=== PATIENT | female | born 1965 | race Caucasian/White ===

== ENCOUNTER 2017-12-24 07:09 | Outpatient (CLI) | payer OTHER | END 2017-12-24 07:16 | disposition home or self-care (01) | LOC: SONOGRAMA 07:09 | DX: E04.2 Nontoxic multinodular goiter (principal) ==

== ENCOUNTER 2024-11-21 07:00 | Inpatient (IN) | payer OTHER ==
[~2024-11-21] VITALS: Ht 162.6 cm; Wt 65.8 kg
[2024-11-21] MEDS ORDERED: CELEBREX50 MG (08:25)
[2024-11-21] MEDS ORDERED: FOLIC ACID1 MG PO (08:26)
[2024-11-21] MEDS ORDERED: METOTREXATE (08:32)
[2024-11-21 08:35] VITALS: BP 112/79
[2024-11-21 08:38] LABS: BASO % 0.2 % (0.1-1.2); EOS # 0.23 (0.04-0.54); EOS % 2.8 % (0.7-7.0); LYMPH # 2.48 (1.18-3.74); LYMPH % 30.5 % (19.3-53.1); MEAN PLATELET VOLUME 9.00 fl (9.4-12.4); MONO # 0.50 (0.24-0.82); MONO % 6.2 % (4.7-12.5); NEUT # 4.87 (1.56-6.13); NEUT % 60.1 % (34.0-71.1); RED CELL DISTRIBUTION WIDTH 13.3 % (11.6-14.4)
[2024-11-21 08:40] LABS: URINE APPEARANCE Cloudy; URINE BILIRRUBIN Negative (NEGATIVE); URINE BLOOD Small; URINE COLOR Yellow; URINE GLUCOSE Negative (NEGATIVE); URINE KETONE Trace (NEGATIVE); URINE LEUKOCYTE Large; URINE NITRATE Negative; URINE PROTEIN Negative (NEGATIVE); URINE UROBILINOGEN 0.2 E.U./dl
[2024-11-21 08:44] LABS: URINE BACTERIA 1815.5 uL (0.0-1933); URINE EPITHELIAL CELLS 34.1 uL (0.0-38.8); URINE RBC 91.2 uL (0.0-20.8); URINE WBC 737.6 uL (0.0-23.2)
[2024-11-21 08:55] LABS: COVID-19 AG NEGATIVE (NEGATIVE)
[2024-11-21 09:02] LABS: URINE CAST 0.14 uL (0.0-1.40)
[2024-11-21 09:06] LABS: INR 1.0
[2024-11-21 09:13] LABS: ALT/SGPT 16.0 U/L (12-78); AST/SGOT 10.0 U/L (15-37); BILIRUBIN TOTAL 0.38 mg/dL (0.3-1.2); BUN CREA RATIO 23.0 (7.0-25.0); CHOL HDL RATIO 3.0 (0-5.0); CREATININE SERUM 0.35 mg/dL (0.55-1.02); GFR 191.25; GLOBULINA 4.6 G/DL (2.4-3.5); GLUCOSE FASTING 106.0 mg/dL (65-100); HDL 56.0 mg/dl (40-60); LDL 86.0 mg/dl (0-130); OSMOLALITY SERUM 284.0 MOSM/KG (275-295); VLDL 24.0 (0-39)
[2024-11-21 10:51] LABS: RH POSITIVE
[2024-11-29] MEDS ORDERED: LIDOCAINE HCL 1%/EPINEPHRINE 20ML VIAL IJ ONE (09:30)
[2024-11-29] MEDS ORDERED: MORPHINE SULFATE 4 MG/ML CARTRIDGE IV ONE (09:30)
[2024-11-29] MEDS ORDERED: ISOPROPYL ALCOHOL 30 ML OUNCE TOP ONE (09:30)
[2024-11-29] MEDS ORDERED: BUPIVACAINE HCL 30 ML VIAL IJ ONE (09:30)
[2024-11-29] MEDS ORDERED: CEFAZOLIN SODIUM 1,000 MG VIAL IV ONE (09:30)
[2024-11-29] MEDS ORDERED: TRANEXAMIC ACID 100MG/1ML (1000MG) AMPUL IV ONE (09:30)
[2024-11-29] MEDS ORDERED: KETOROLAC TROMETHAMINE 60 MG VIAL IM ONE (09:30)
[2024-11-29] MEDS ORDERED: OxyCODONE HCL 5 MG TABLET (ROXICODONE) PO PRN (12:15)
[2024-11-29] MEDS ORDERED: SODIUM CHLORIDE 0.45 % 1,000 ML IV SCH (12:15)
[2024-11-29] MEDS ORDERED: ONDANSETRON HCL 2 MG/ML VIAL IV PRN (12:15)
[2024-11-29] MEDS ORDERED: MORPHINE SULFATE 4 MG/ML CARTRIDGE IV PRN (12:15)
[2024-11-29] MEDS ORDERED: CEFAZOLIN SODIUM 1,000 MG VIAL IV SCH (17:00)
[2024-11-29] MEDS ORDERED: GABAPENTIN 300 MG CAPSULE PO SCH (17:00)
[2024-11-29 17:11] VITALS: BP 148/88; O2SAT 96
[2024-11-29] MEDS ORDERED: ACETAMINOPHEN 500 MG GEL..CAP PO SCH (18:00)
[2024-11-29 23:00] VITALS: BP 126/76; O2SAT 100
[2024-11-30 07:22] LABS: BASO % 0.2 % (0.1-1.2); EOS # 0.03 (0.04-0.54); EOS % 0.5 % (0.7-7.0); LYMPH # 1.31 (1.18-3.74); LYMPH % 20.5 % (19.3-53.1); MEAN PLATELET VOLUME 9.70 fl (9.4-12.4); MONO # 0.43 (0.24-0.82); MONO % 6.7 % (4.7-12.5); NEUT # 4.60 (1.56-6.13); NEUT % 71.9 % (34.0-71.1); RED CELL DISTRIBUTION WIDTH 13.3 % (11.6-14.4)
[2024-11-30 09:00] VITALS: BP 104/67; O2SAT 98
[2024-11-30] MEDS ORDERED: SENNOSIDES 1 TAB TABLET PO SCH (09:00)
[2024-11-30] MEDS ORDERED: APIXABAN 2.5 MG TABLET PO SCH (09:00)
[2024-11-30] MEDS ORDERED: Cyanocobalamin/Mecobalamin 1 TAB.SL SL NR (12:00)
[2024-11-30] MEDS ORDERED: SOD FERRIC GLUC COMPLX/SUCROSE 62.5 MG/5 ML AMPUL IV SCH (12:00)
[2024-11-30 17:50] VITALS: BP 108/59; O2SAT 96
[2024-12-01 01:47] VITALS: BP 118/68; O2SAT 98
[2024-12-01 08:00] VITALS: BP 145/90; O2SAT 97
[2024-12-01] MEDS ORDERED: IRON FUM,PS/FOLIC ACID/VITC/B3 1 CAP CAPSULE PO SCH (09:00)
[2024-12-01] MEDS ORDERED: Cyanocobalamin/Mecobalamin 1 TAB.SL SL SCH (09:00)
[2024-12-01] MEDS ORDERED: AMINO ACIDS/PROTEIN HYDROLYS 30 ML BLIST.PACK PO SCH (09:00)
[2024-12-01 11:23] LABS: BASO % 0.3 % (0.1-1.2); EOS # 0.07 (0.04-0.54); EOS % 0.9 % (0.7-7.0); LYMPH # 2.10 (1.18-3.74); LYMPH % 27.2 % (19.3-53.1); MEAN PLATELET VOLUME 8.90 fl (9.4-12.4); MONO # 0.51 (0.24-0.82); MONO % 6.6 % (4.7-12.5); NEUT # 5.00 (1.56-6.13); NEUT % 64.6 % (34.0-71.1); RED CELL DISTRIBUTION WIDTH 14.3 % (11.6-14.4)
[2024-12-01] MEDS ORDERED: ELIQUIS2.5 MG PO (15:18)
[2024-12-01] MEDS ORDERED: CEFADROXIL500 MG PO (15:18)
[2024-12-01] MEDS ORDERED: PERCOCET 5-3251 EACH PO (15:18)
== END 2024-12-01 17:35 | DRG 470 ==
LOC: SURG 11-29 06:08 → O/R 11-29 06:08 → SURH 11-29 07:00 → SURG 11-29 14:27
PROVIDERS: ADMIT Orthopaedic Surgery; ATTEND Orthopaedic Surgery
PROC: 0QUD0JZ Supplement Right Patella with Synthetic Substitute, Open Approach (ICD-10-PCS; 2024-11-29)
PROC: 0QUD0KZ Supplement Right Patella with Nonautologous Tissue Substitute, Open Approach (ICD-10-PCS; 2024-11-29)
PROC: 0MNN0ZZ Release Right Knee Bursa and Ligament, Open Approach (ICD-10-PCS; 2024-11-29)
PROC: 0SRC0JZ Replacement of Right Knee Joint with Synthetic Substitute, Open Approach (ICD-10-PCS; principal; 2024-11-29 11:15)
DX: M17.11 Unilateral primary osteoarthritis, right knee (principal); M22.11 Recurrent subluxation of patella, right knee; Z96.651 Presence of right artificial knee joint; F55.1 Abuse of herbal or folk remedies